=== PATIENT | female | born 1990 | race Two or more races ===

== ENCOUNTER → 2024-01-28 | Outpatient (CLI) | payer BC, SELFPAY ==
--- NOTE | 2024-01-28 14:00 | XR_ITS ---
Examination: Breast ultrasound, unilateral, left complete Date and time of exam: January 28, 2024 1414 hours INDICATIONS: Right breast sonogram 11/07/2023 BI-RADS 4 suspicious mass 10:00 position right breast, pathology report January 12, 2024 infiltrating ductal carcinoma 10:00 nodule biopsy Technique: Real-time clay scale ultrasonographic imaging performed right breast including all 4 quadrants as well as nipple retroareolar and axillary region. Findings: Sonographic images left breast 3:00 nodule 8 x 5 mm lobular margins 7:00 cyst 5 x 4 mm 8:00 solid nodule lobular margins 9 x 8 mm 10:00 cyst 9 x 7 mm IMPRESSION: BI-RADS Category 3: Probably benign findings Recommend 1 additional 6 month left breast sonogram follow-up to document stability of solid nodules described above
--- NOTE | 2024-01-28 14:30 | XR_ITS ---
Examination: Diagnostic digital mammography, unilateral, left Computer aided detection 3-D breast Tomosynthesis, unilateral Date and time of exam: January 28, 2024 1433 hours Comparison 11/07/2023 INDICATIONS: Personal history right breast cancer Technique: Nonmagnified MLO, CC views of the left breast have been obtained, reconstructed from 3-D Tomosynthesis images. R2 computer aided detection program utilized for evaluation of suspicious masses and/or abnormal calcifications. 3-D Tomosynthesis images obtained. Findings: The breast is heterogeneously dense, which may obscure small masses Benign calcifications No suspicious masses Impression: BI-RADS category 2: Benign findings Recommend yearly follow-up mammography
== END | disposition home or self-care (01) ==
PROVIDERS: PCP Family Medicine; Referring Provider Advanced Practice Midwife; Visit Provider Advanced Practice Midwife
DX: R92.322 Mammographic fibroglandular density, left breast (principal); R92.1 Mammographic calcification found on diagnostic imaging of breast; N63.25 Unspecified lump in the left breast, overlapping quadrants; N63.24 Unspecified lump in the left breast, lower inner quadrant
CPT/HCPCS: 76641; 77061; 77065; G0279

== ENCOUNTER 2024-12-29 08:44 | Outpatient (RCR) | payer BC, SELFPAY ==
--- NOTE | 2025-01-04 20:59 | CTCCONSULT_ITS ---
Patient: DERICK EUCEDA : 1990 MR#: [id number] Page 4 of 4 CONSULTATION NOTE DATE OF CONSULTATION: 12/29/2024 NAME: DERICK EUCEDA ACCOUNT: [id number] : 1990 AGE: 34 REFERRING PHYSICIAN: Petrona Daniels MD PRIMARY PHYSICIAN: Petrona Daniels MD REASON FOR VISIT: Right breast cancer ONCOLOGY HISTORY: DIAGNOSIS: Malignant neoplasm of overlapping sites of right female breast [ICD10] C50.811 DATE OF DIAGNOSIS: 01/12/2024 STAGE/TNM: IIA T1 N1 M0 s/p TC TREATMENT HISTORY: Care?Plan Start?Date Cycle Day Intent Lupron?Depot?3.75?monthly 12/29/2024 1 28 Induction-Primary HISTORY OF PRESENT ILLNESS: 34-year-old female with right breast cancer .patient had stage 2 breast cancer and was recommended to get chemtoehrapy followed by radiation and harmone blocking therapy . patient had TCbut no other therapy till date . OTHER MEDICAL HISTORY/CONDITIONS: Invasive ductal carcinoma - dx 01/12/2024 Right mastectomy with Sn biospy; axillary node dissection - 12/24/2024 - Dr. Jared Dale Cholecystectomy 2009 FAMILY HISTORY: Patient?denies?family?cancer?history. 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 tamoxifen - 20 mg 1 tab Daily Medications Last Reconciled by Tamara Kc RN on 12/29/2024 ALLERGIES: No Known Drug Allergies REVIEW OF SYSTEMS: A complete 14-point review of systems was performed and is negative except as noted in interval history. PHYSICAL EXAMINATION: VITAL SIGNS: Temperature?98.2, B/P?118/82, Height?62?inches, Oxygen?Saturation?97% Weight?141?lbs PAIN: 0 - No pain ECOG Performance Status: 0 - Asymptomatic and fully active GENERAL APPEARANCE: Appears well, in no apparent distress, appropriately interactive. HEENT: Normocephalic, no temporal wasting, normal conjunctiva, no scleral icterus, normal hearing, lips without lesions, neck normal range of motion. CARDIOVASCULAR: Not assessed. PULMONARY: Normal respiratory effort, no respiratory distress or use of accessory muscles, speaking in full sentences, no tachypnea. EXTREMITIES: No pedal edema or cyanosis. SKIN: Normal skin appearance. NEUROLOGIC: Alert and oriented x4. PSHYCHIATRIC: Appropriate affect, mood normal, behavior normal, intact thought and speech. LABORATORY DATA: I have personally reviewed and interpreted each of the patient?s relevant lab tests, abnormal findings are below: Date ASSESSMENT/PLAN: Stage 2A right breast cancer Recommended to start Lupron and tamoxifen lauren . Once she have oophorectomy , she can stop shots Cont tamoxifen and hold it if undergoing surgery and resume after she is back to her [place]. Treatment adherence reiterated. ORDERS: Order # Description [id number] Comprehensive Metabolic Panel - 12 + CBC with Auto Diff [id number] Follow Up 2 Months RETURN TO CLINIC: I reviewed the diagnosis, prognosis, and recommended treatment/procedure options with the patient (and/or their legal financial services representative), including the potential benefits, risks, side effects and alternative therapies. We also discussed the option of no treatment and the possibility of clinical trial participation, if applicable. All questions were addressed, and they demonstrated understanding. They provided informed consent to proceed with the proposed plan of care. BILLING AND COMPLIANCE: I reviewed external records from providers outside my specialty as summarized above. I spent a total of 50 minutes on this patient?s care on the day of their visit excluding time spent related to any billed procedures. This time includes time spent with the patient as well as time spent documenting in the medical record, reviewing patients records and tests, obtaining history, placing orders, communicating with other healthcare professionals, counseling the patient, family or caregiver, and/or care coordination for the diagnoses above. Electronically Signed by: {Object.Sanct_ID*PnP.NameFL@M}, {Object.Sanct_ID*PnP.Suffix@U} D: {Object.Sanct_Date} T: {Object.Sanct_Time} CC: PCP: Petrona Daniels Referring: Petrona Daniels This document was completed utilizing speech recognition software. Grammatical errors, random word insertions, pronoun errors, and incomplete sentences are an occasional consequence of this system due to software limitations, ambient noise, and hardware issues. Any formal questions or concerns about the content, text or information contained within the body of this dictation should be directly addressed to the provider for clarification.
== END 2025-01-23 23:59 | disposition home or self-care (01) ==
LOC: SCTC 08:44
PROVIDERS: PCP Advanced Practice Midwife; Referring Provider Internal Medicine; Visit Provider Internal Medicine Hematology & Oncology
DX: C50.411 Malignant neoplasm of upper-outer quadrant of right female breast (principal); Z17.0 Estrogen receptor positive status [ER+]; Z17.21 Progesterone receptor positive status
CPT/HCPCS: 99213; J1950; G0463